=== PATIENT | male | born 1985 | race Caucasian/White ===

== ENCOUNTER 2017-01-02 14:53 | Emergency (ER) | payer SELFPAY ==
[~2017-01-02] VITALS: Ht 177.8 cm; Wt 70.0 kg
[~2017-01-02 14:53] MED LIST: CYCL-36 PO; NAPR550 PO; Z.0.NO CURRENT MEDS
[2017-01-02 14:55] VITALS: BP 144/91; PULSE 107; RESP 16; TEMP 98.3; O2SAT 99
[2017-01-02] MEDS ORDERED: SUBO2MIS SL (16:29)
--- NOTE | 2017-01-02 17:10 | PD ---
HPI Chief Complaint: Complaint Time Seen by Provider: 16:11 Travel History International Travel<30 days: No Contact w/Intl Traveler<30days: No Traveled to known affect area: No History of Present Illness HPI So 31 minute presents emergent department complaining of left testicular pain. He states about 9:30 this morning was getting up out of the toilet when he felt like all sounds by 9 pound weight tied to his testicle. States he had severe pain this started fairly abruptly. He's had pain persistently since then. He took a Lortab that he got from family member. It did help some. Is also describes some dark colored urine. He has pain and tenderness above his testicle as well. He's not had similar symptoms. He's never had testicular problems. He's not had kidney stones in the past. He denies any dysuria. He is sexually active. History Past Medical History Medical History: Denies Significant Hx Past Surgical History Surgical History: No Previous Surgery Social History Alcohol Use: Yes (SIX PACK OF BEER 3 X'S AWEEK) Tobacco Use: Yes Allergies-Medications (Allergen,Severity, Reaction): Coded Allergies: No Known Allergies (Verified , 01/02/17) Reported Meds & Prescriptions Reported Meds & Active Scripts Active Reported Suboxone Sublingual Film (Buprenorphine-Naloxone Sublingual Film) 2-0.5 Mg Film 1 Film SL [id number] Unique ID number required: Review of Systems Except as stated in HPI: all other systems reviewed are Neg Physical Exam Narrative GENERAL: Well-appearing 31-year-old man, no acute distress. SKIN: Focused skin assessment warm/dry. CARDIOVASCULAR: Regular rate and rhythm. No murmur appreciated. RESPIRATORY: No accessory muscle use. Clear to auscultation. Breath sounds equal bilaterally. GASTROINTESTINAL: Abdomen soft, non-tender, nondistended. Hepatic and splenic margins not palpable. MUSCULOSKELETAL: No obvious deformities. No clubbing. No cyanosis. No edema. NEUROLOGICAL: Awake and alert. No obvious cranial nerve deficits. Motor grossly within normal limits. Normal speech. : Normal external male genitalia. Normal appearance and lie of the testicles. I don't see any obvious asymmetry of the cremasteric reflexes. He does have pain to the testicle on the left. Is no obvious swelling. There is no focal tenderness to the epididymis. Is a little bit of pain in them inguinal area on the left as well. There is no appreciable hernias. Data Data Last Documented VS Vital Signs Date Time Temp Pulse Resp B/P Pulse Ox O2 Delivery O2 Flow Rate FiO2 01/02/17 14:55 98.3 107 16 144/91 99 Orders Complete Blood Count With Diff (01/02/17 16:17) Urinalysis - C+S If Indicated (01/02/17 16:17) Gc And Chlamydia Pcr (01/02/17 16:17) Us Testicles W Doppler (01/02/17 ) Iv Access Insert/Monitor (01/02/17 16:17) Comprehensive Metabolic Panel (01/02/17 16:17) MDM Medical Decision Making Medical Screen Exam Complete: Yes Emergency Medical Condition: Yes Differential Diagnosis Renal lithiasis, testicular torsion, hernia, other Narrative Course Medical decision-making 31-year-old man who presents to the emergency department with left testicular pain and left groin pain. Symptoms been ongoing since 9:30. Patient looks really pretty comfortable. I don't see other objective evidence of torsion. He 'll need an ultrasound evaluated. Renal lithiasis also possibility. He describes dark colored urine. We'll check labs, UA, and CT pending results of ultrasound. Patient be sent up to provider 5 PM for repeat assessment. Prem Solano MD Jan 02, 2017 17:10
[2017-01-02 17:13] LABS: AUTOMATED NEUTROPHIL # 9.2 TH/MM3 (1.8-7.7); BASOPHIL % 0.3 % (0.0-2.0); EOSINOPHIL # 0.1 TH/MM3 (0-0.4); EOSINOPHIL % 0.8 % (0.0-4.0); HEMATOCRIT 45.5 % (39.0-51.0); HEMO FLAGS DIFF FINAL; LYMPH % 21.2 % (9.0-44.0); LYMPHOCYTE # 2.9 TH/MM3 (1.0-4.8); MEAN CELL VOLUME 89.6 FL (80.0-100.0); MEAN CORPUSCULAR HEMOGLOBIN 30.7 PG (27.0-34.0); MEAN CORPUSCULAR HGB CONC 34.3 % (32.0-36.0); MONO % 10.5 % (0.0-8.0); NEUT % 67.2 % (16.0-70.0); PLATELET COUNT 284 TH/MM3 (150-450); RED BLOOD COUNT 5.08 MIL/MM3 (4.50-5.90); RED CELL DISTRIBUTION WIDTH 12.8 % (11.6-17.2); WHITE BLOOD COUNT 13.7 TH/MM3 (4.0-11.0)
[2017-01-02 17:17] LABS: BLOOD, URINE NEG (NEG); COMMENT (UR) CULTURE INDICATED; CULTURE IF INDICATED CULTURE INDICATED; GLUCOSE,URINE NEG (NEG); KETONE, URINE 10 mg/dL (NEG); MUCUS URINE FEW /lpf (OCC); NITRITE,URINE NEG (NEG); URINE COLOR YELLOW (YELLW/STRAW)
[2017-01-02 17:36] LABS: ALT (GPT) 54 U/L (12-78); ANION GAP 7 MEQ/L (5-15); AST (GOT) 27 U/L (15-37); BICARBONATE 28.3 MEQ/L (21.0-32.0); BLOOD UREA NITROGEN 11 MG/DL (7-18); CHLORIDE 98 MEQ/L (98-107); GLOMERULAR FILTRATION RATE 98 ML/MIN (>89); POTASSIUM 3.9 MEQ/L (3.5-5.1); SODIUM (NA) 133 MEQ/L (136-145)
[2017-01-02 17:38] LABS: ALKALINE PHOSPHATASE 185 U/L (45-117); TOTAL BILIRUBIN ADULT 0.7 MG/DL (0.2-1.0)
--- NOTE | 2017-01-02 18:20 | RADRPT ---
EXAM DATE/TIME: 01/02/2017 17:44 [facility] COMPARISON: No previous studies available for comparison. INDICATIONS : Left testicular pain. MEDICAL HISTORY : Testicular pain. Dark colored urine. SURGICAL HISTORY : None. ENCOUNTER: Initial ACUITY: 1 day PAIN SCORE: 6/10 LOCATION: Bilateral testicles. MEASUREMENTS: RIGHT TESTICLE: 4.8 x 3.1 x 2.6cm LEFT TESTICLE: 4.4 x 3.0 x 2.5cm FINDINGS: Normal echogenicity and blood flow seen in both testes. There are small, bilateral varicoceles a nd small bilateral hydroceles. Right and left epididymis are normal. CONCLUSION: Small bilateral varicoceles. Small bilateral hydrocele fluid, nonspecific. Testes and epididymes are normal. Gary Johnson MD on January 02, 2017 at 18:17 Board Certified Radiologist. This report was verified electronically.
--- NOTE | 2017-01-02 18:36 | RADRPT ---
EXAM DATE/TIME: 01/02/2017 18:21 [facility] COMPARISON: No previous studies available for comparison. INDICATIONS : Left flank and testicle pain. ORAL CONTRAST: No oral contrast ingested. RADIATION DOSE: 3.92 CTDIvol (mGy) MEDICAL HISTORY : ETOH abuse SURGICAL HISTORY : None. ENCOUNTER: Initial ACUITY: 1 day PAIN SCALE: 7/10 LOCATION: flank TECHNIQUE: Volumetric scanning of the abdomen and pelvis was performed. Using automated exposure control and ad justment of the mA and/or kV according to patient size, radiation dose was kept as low as reasonably achievable to obtain optimal diagnostic quality images. DICOM format image data is available electro nically for review and comparison. FINDINGS: LOWER LUNGS: The visualized lower lungs are clear. LIVER: Homogeneous density without lesion. There is no dilation of the biliary tree. No calcified gallston es. SPLEEN: Normal size without lesion. PANCREAS: Within normal limits. KIDNEYS: Normal in size and shape. There is no mass, stone, or hydronephrosis. ADRENAL GLANDS: Within normal limits. VASCULAR: There is no aortic aneurysm. BOWEL/MESENTERY: The stomach, small bowel, and colon demonstrate no acute abnormality. There is no free intraperitone al air or fluid. Dense material seen in the appendix, could be some retained contrast from a previous barium study or partially calcified fecal matter. No inflammatory changes are demonstrated. ABDOMINAL WALL: Within normal limits. RETROPERITONEUM: There is no lymphadenopathy. BLADDER: No wall thickening or mass. REPRODUCTIVE: Within normal limits. INGUINAL: There is no lymphadenopathy or hernia. MUSCULOSKELETAL: Within normal limits for patient age. CONCLUSION: Negative noncontrast CT. No renal stones or obstruction or other acute abnormality. Gary Johnson MD on January 02, 2017 at 18:31 Board Certified Radiologist. This report was verified electronically.
[2017-01-02] MEDS ORDERED: CIPR-9 PO (19:00)
--- NOTE | 2017-01-02 19:00 | PD ---
Physical Exam Narrative Patient signed out to me by Dr. Solano. Please see his documentation for complete details. Patient is 31 year old male who comes in complaining of left testicular pain that came on suddenly after standing up from using the bathroom today. He says the pain goes up into abdomen and back. Exam shows no abdominal tenderness. Data Data Last Documented VS Vital Signs Date Time Temp Pulse Resp B/P Pulse Ox O2 Delivery O2 Flow Rate FiO2 01/02/17 14:55 98.3 107 16 144/91 99 Orders Complete Blood Count With Diff (01/02/17 16:17) Urinalysis - C+S If Indicated (01/02/17 16:17) Gc And Chlamydia Pcr (01/02/17 16:17) Us Testicles W Doppler (01/02/17 ) Iv Access Insert/Monitor (01/02/17 16:17) Comprehensive Metabolic Panel (01/02/17 16:17) Urine Culture (01/02/17 16:30) Ct Abd/Pel W/O Iv Contrast (01/02/17 ) Labs Laboratory Tests Test 01/02/17 16:30 White Blood Count 13.7 TH/MM3 Red Blood Count 5.08 MIL/MM3 Hemoglobin 15.6 GM/DL Hematocrit 45.5 % Mean Corpuscular Volume 89.6 FL Mean Corpuscular Hemoglobin 30.7 PG Mean Corpuscular Hemoglobin 34.3 % Concent Red Cell Distribution Width 12.8 % Platelet Count 284 TH/MM3 Mean Platelet Volume 9.0 FL Neutrophils (%) (Auto) 67.2 % Lymphocytes (%) (Auto) 21.2 % Monocytes (%) (Auto) 10.5 % Eosinophils (%) (Auto) 0.8 % Basophils (%) (Auto) 0.3 % Neutrophils # (Auto) 9.2 TH/MM3 Lymphocytes # (Auto) 2.9 TH/MM3 Monocytes # (Auto) 1.4 TH/MM3 Eosinophils # (Auto) 0.1 TH/MM3 Basophils # (Auto) 0.0 TH/MM3 CBC Comment DIFF FINAL Differential Comment Urine Color YELLOW Urine Turbidity HAZY Urine pH 6.0 Urine Specific [place] 1.028 Urine Protein 30 mg/dL Urine Glucose (UA) NEG mg/dL Urine Ketones 10 mg/dL Urine Occult Blood NEG Urine Nitrite NEG Urine Bilirubin NEG Urine Urobilinogen 2.0 MG/DL Urine Leukocyte Esterase NEG Urine RBC 15 /hpf Urine WBC 20 /hpf Urine Amorphous Sediment RARE Urine Mucus FEW /lpf Urine Sperm MOD Microscopic Urinalysis Comment CULTURE INDICATED Sodium Level 133 MEQ/L Potassium Level 3.9 MEQ/L Chloride Level 98 MEQ/L Carbon Dioxide Level 28.3 MEQ/L Anion Gap 7 MEQ/L Blood Urea Nitrogen 11 MG/DL Creatinine 0.90 MG/DL Estimat Glomerular Filtration 98 ML/MIN Rate Random Glucose 136 MG/DL Calcium Level 9.3 MG/DL Total Bilirubin 0.7 MG/DL Aspartate Amino Transf 27 U/L (AST/SGOT) Alanine Aminotransferase 54 U/L (ALT/SGPT) Alkaline Phosphatase 185 U/L Total Protein 8.0 GM/DL Albumin 4.1 GM/DL MDM Supervised Visit with [facility]: No Narrative Course Urinalysis is positive for bacteria. I discussed with the patient the possibility of him having GC/chlamydia. He denies any risk factors at this time and would like to hold off treatment and wait for test results. CT abd/pelvis shows no acute abnormalities. US of the testicles shows no acute abnormalities. Patient will be discharged with Cipro. Advised to follow up with a primary care doctor. Return to the ED as needed for any worsening symptoms. Diagnosis Primary Impression: UTI (urinary tract infection) Qualified Code: N30.00 - Acute cystitis without hematuria Patient Instructions: General Instructions, Urinary Tract Infection in Men (ED) Additional Instruction: Follow-up with a primary care doctor. Take all of her antibiotic. Return to the emergency department as needed for any worsening symptoms. Scripts Ciprofloxacin (Cipro)500 Mg [id number] Mg PO BID 7 Days Ref 0 Prov:Rosalie Rucker MD 01/02/17 Disposition: DISCHARGE HOME Condition: Stable Rosalie Rucker MD Jan 02, 2017 19:00
[2017-01-02 19:03] VITALS: BP 147/103; PULSE 87; RESP 15; O2SAT 100
[2017-01-02 19:58] LABS: CHLAMYDIA PCR NOT DETECTED (NOT DETECT); NEISSERIA PCR NOT DETECTED (NOT DETECT)
== END 2017-01-02 19:31 | disposition home or self-care (01) ==
LOC: NEPD 14:53
DX: N30.00 Acute cystitis without hematuria (principal); Z72.0 Tobacco use
CPT/HCPCS: 74176; 76870; 80053; 81001; 85025; 87086; 87491; 87591; 93975; 99285